=== PATIENT | female | born 2000 | race Caucasian/White ===

== ENCOUNTER 2021-06-01 17:24 | Emergency (ER) | payer OTHER ==
[~2021-06-01] VITALS: Ht 165.1 cm; Wt 69.4 kg
[2021-06-01 19:52] LABS: BASO % 0.2 % (0.0-1.0); EOS % 0.4 % (0.0-3.0); HEMATOCRIT 37.8 % (36.0-47.0); HEMOGLOBIN 13.1 g/dl (12.0-15.5); LYMPH # 2.3 10^3/uL (1.5-5.0); LYMPH % 22.5 % (24.0-44.0); MEAN CORPUSCULAR HEMOGLOBIN 29.8 pg (27.0-33.0); MEAN CORPUSCULAR HGB CONC 34.7 g/dl (32.0-36.5); MEAN CORPUSCULAR VOLUME 86.1 fl (80.0-96.0); MONO # 0.6 10^3/uL (0.0-0.8); MONO % 5.3 % (2.0-8.0); NEUTROPHILS # 7.4 10^3/uL (1.5-8.5); NEUTROPHILS % 71.4 % (36.0-66.0); PLATELET COUNT, AUTOMATED 326 10^3/uL (150-450); RED BLOOD COUNT 4.39 10^6/uL (4.00-5.40); WHITE BLOOD COUNT 10.3 10^3/uL (4.0-10.0)
[2021-06-01 20:36] LABS: BLOOD UREA NITROGEN 10 MG/DL (7-18); CALCIUM LEVEL 9.8 MG/DL (8.5-10.1); CARBON DIOXIDE LEVEL 23 MEQ/L (21-32); CHLORIDE LEVEL 105 MEQ/L (98-107); GLUCOSE, FASTING 84 MG/DL (70-100); HCG, SERUM QUANTITATIVE 50028 MIU/ML; POTASSIUM SERUM 3.9 MEQ/L (3.5-5.1); SODIUM LEVEL 137 MEQ/L (136-145)
--- NOTE | 2021-06-01 20:52 | REPVR ---
PROCEDURE INFORMATION: Exam: US First Trimester, Transabdominal Exam date and time: 06/01/2021 7:58 PM Age: 20 years old Clinical indication: Lmp or gestational age (in weeks): 6w 2d; Other: Vaginal bleeding; TECHNIQUE: Imaging protocol: Real-time transabdominal obstetrical ultrasound of the maternal pelvis and a first trimester , less than 14 weeks 0 days, with image documentation. COMPARISON: No relevant prior studies available. FINDINGS: Gestation: Gestational sac measures 24 mm . pole measures 6.5 mm corresponding to 6 weeks and 4 days gestation. Embryonic/ heart rate: Positive heart rate of 122 bpm. MATERNAL: Uterus: Uterus measures 8.3 x 4.3 x 5.3 cm. Cervix: Unremarkable. Right adnexa: Right ovary measures 3.7 x 2.3 x 2.7 cm. Complex structure in the right ovary measuring 1.6 x 1.5 x 1.3 cm. Left ovary not visualized. Left adnexa: See "Right adnexa" finding. Intraperitoneal space: No intraperitoneal free fluid. IMPRESSION: Single intrauterine gestation corresponding to 6 weeks and 4 days gestation. Positive heart rate of 122 bpm. Right ovarian complex cystic structure, likely corpus luteal cyst. Electronically signed by: Jaime Doss On 06/01/2021 20:51:43 PM
[2021-06-01 21:15] VITALS: BP 145/74
== END 2021-06-01 21:34 | disposition home or self-care (01) ==
LOC: M ED 17:24
DX: O20.0 Threatened abortion (principal); O26.891 Other specified pregnancy related conditions, first trimester; O34.81 Maternal care for other abnormalities of pelvic organs, first trimester; O20.8 Other hemorrhage in early pregnancy; Z3A.01 Less than 8 weeks gestation of pregnancy; Z87.59 Personal history of other complications of pregnancy, childbirth and the puerperium

== ENCOUNTER → 2021-07-28 | Outpatient (CLI) | payer OTHER ==
[2021-07-28 17:47] LABS: HEMATOCRIT 35.9 % (36.0-47.0); HEMOGLOBIN 12.3 g/dl (12.0-15.5); MEAN CORPUSCULAR HEMOGLOBIN 29.9 pg (27.0-33.0); MEAN CORPUSCULAR HGB CONC 34.3 g/dl (32.0-36.5); MEAN CORPUSCULAR VOLUME 87.1 fl (80.0-96.0); PLATELET COUNT, AUTOMATED 245 10^3/uL (150-450); RED BLOOD COUNT 4.12 10^6/uL (4.00-5.40); WHITE BLOOD COUNT 8.7 10^3/uL (4.0-10.0)
[2021-07-28 18:41] LABS: HEPATITIS C VIRUS ABY INDEX 0.1 INDEX (<0.8); HIV 1&2 SCREEN CENTAUR NEGATIVE (NEGATIVE)
[2021-07-28 21:54] LABS: GC DNA AMPLIFICATION NEGATIVE (NEGATIVE)
== END ==
LOC: M PLALAB 13:43
PROVIDERS: ATTEND Advanced Practice Midwife
DX: Z36.89 Encounter for other specified antenatal screening (principal); Z3A.14 14 weeks gestation of pregnancy

== ENCOUNTER → 2021-09-02 | Outpatient (CLI) | payer OTHER | LOC: M RAD 09:53 → M WHC 09:53 | PROVIDERS: ATTEND Advanced Practice Midwife | DX: O32.1XX0 Maternal care for breech presentation, not applicable or unspecified (principal); Z36.89 Encounter for other specified antenatal screening; Z3A.19 19 weeks gestation of pregnancy ==

== ENCOUNTER → 2021-10-28 | Outpatient (CLI) | payer OTHER ==
[2021-10-28 15:32] LABS: HEMATOCRIT 35.7 % (36.0-47.0); MEAN CORPUSCULAR HGB CONC 33.6 g/dl (32.0-36.5); MEAN CORPUSCULAR VOLUME 92.2 fl (80.0-96.0); PLATELET COUNT, AUTOMATED 197 10^3/uL (150-450); RED BLOOD COUNT 3.87 10^6/uL (4.00-5.40); WHITE BLOOD COUNT 12.5 10^3/uL (4.0-10.0)
== END ==
LOC: M PLALAB 11:26
PROVIDERS: ATTEND Advanced Practice Midwife
DX: Z34.82 Encounter for supervision of other normal pregnancy, second trimester (principal); Z3A.00 Weeks of gestation of pregnancy not specified

== ENCOUNTER → 2022-01-05 | Outpatient (REF) | payer OTHER ==
[~2022-01-05] MED LIST: ACET160S3 PO; PRENTAB9 PO; TUMS750C5 PO
== END ==
LOC: M SFHCWAGY 16:43
PROVIDERS: ATTEND Obstetrics & Gynecology
DX: O41.00X0 Oligohydramnios, unspecified trimester, not applicable or unspecified (principal)

== ENCOUNTER → 2022-04-12 | Outpatient (CLI) | payer OTHER | LOC: M PLALAB 12:38 | PROVIDERS: ATTEND Obstetrics & Gynecology | DX: Z34.91 Encounter for supervision of normal pregnancy, unspecified, first trimester (principal); Z3A.01 Less than 8 weeks gestation of pregnancy ==

== ENCOUNTER 2023-01-31 12:35 | Emergency (ER) | payer OTHER ==
[~2023-01-31] VITALS: Ht 165.1 cm; Wt 95.5 kg
[2023-01-31 15:07] LABS: BASO % 0.4 % (0.0-1.0); EOS # 0.1 10^3/uL (0.0-0.5); EOS % 1.3 % (0.0-3.0); HEMATOCRIT 43.3 % (36.0-47.0); HEMOGLOBIN 14.2 g/dl (12.0-15.5); MEAN CORPUSCULAR HEMOGLOBIN 28.5 pg (27.0-33.0); MEAN CORPUSCULAR HGB CONC 32.8 g/dl (32.0-36.5); MEAN CORPUSCULAR VOLUME 86.8 fl (80.0-96.0); MONO # 0.5 10^3/uL (0.0-0.8); MONO % 5.5 % (2.0-8.0); NEUTROPHILS # 5.7 10^3/uL (1.5-8.5); NEUTROPHILS % 60.6 % (36.0-66.0); PLATELET COUNT, AUTOMATED 325 10^3/uL (150-450); RED BLOOD COUNT 4.99 10^6/uL (4.00-5.40); WHITE BLOOD COUNT 9.5 10^3/uL (4.0-10.0)
[2023-01-31 15:33] LABS: BLOOD UREA NITROGEN 10 MG/DL (9-23); CALCIUM LEVEL 9.7 MG/DL (8.5-10.1); CARBON DIOXIDE LEVEL 24 MMOL/L (20-31); CHLORIDE LEVEL 107 MMOL/L (98-107); CREATININE FOR GFR 0.63 MG/DL (0.55-1.30); GLOMERULAR FILTRATION RATE > 60.0 (>60); GLUCOSE, FASTING 96 MG/DL (60-100); POTASSIUM SERUM 4.2 MMOL/L (3.5-5.1); SODIUM LEVEL 138 MMOL/L (136-145)
[2023-01-31 19:08] LABS: GC DNA AMPLIFICATION NEGATIVE (NEGATIVE)
[2023-01-31] MEDS ORDERED: IBUP-1022 PO (20:06)
[2023-01-31 20:26] VITALS: BP 148/88
== END 2023-01-31 20:28 | disposition home or self-care (01) ==
LOC: M ED 12:35
DX: N93.9 Abnormal uterine and vaginal bleeding, unspecified (principal); Z79.810 Long term (current) use of selective estrogen receptor modulators (SERMs); Z79.899 Other long term (current) drug therapy

== ENCOUNTER 2023-02-28 17:44 | Emergency (ER) | payer OTHER ==
[~2023-02-28] VITALS: Ht 165.1 cm; Wt 96.5 kg
[~2023-02-28 17:44] MED LIST changes: +IBUP-1022 PO
[2023-02-28 18:18] LABS: BASO # 0.1 10^3/uL (0.0-0.2); BASO % 0.5 % (0.0-1.0); EOS # 0.1 10^3/uL (0.0-0.5); EOS % 1.2 % (0.0-3.0); HEMATOCRIT 41.8 % (36.0-47.0); HEMOGLOBIN 14.3 g/dl (12.0-15.5); LYMPH # 3.9 10^3/uL (1.5-5.0); MEAN CORPUSCULAR HEMOGLOBIN 29.3 pg (27.0-33.0); MEAN CORPUSCULAR HGB CONC 34.2 g/dl (32.0-36.5); MEAN CORPUSCULAR VOLUME 85.7 fl (80.0-96.0); MONO # 0.4 10^3/uL (0.0-0.8); MONO % 3.8 % (2.0-8.0); NEUTROPHILS # 5.9 10^3/uL (1.5-8.5); NEUTROPHILS % 56.2 % (36.0-66.0); PLATELET COUNT, AUTOMATED 333 10^3/uL (150-450); RED BLOOD COUNT 4.88 10^6/uL (4.00-5.40); WHITE BLOOD COUNT 10.4 10^3/uL (4.0-10.0)
[2023-02-28 18:45] LABS: ETHYL ALCOHOL (ETHANOL) < 0.003 % (0.000-0.010)
[2023-02-28] MEDS ORDERED: NS 1,000 ML IV ONE (18:45)
[2023-02-28] MEDS ORDERED: ONDANSETRON 4MG 2ML VIAL IV ONE (18:45)
[2023-02-28 18:47] LABS: BLOOD UREA NITROGEN 12 MG/DL (9-23); CALCIUM LEVEL 9.1 MG/DL (8.5-10.1); CARBON DIOXIDE LEVEL 22 MMOL/L (20-31); CHLORIDE LEVEL 104 MMOL/L (98-107); CREATININE FOR GFR 0.74 MG/DL (0.55-1.30); GLOMERULAR FILTRATION RATE > 60.0 (>60); GLUCOSE, FASTING 158 MG/DL (60-100); MAGNESIUM LEVEL 1.5 MG/DL (1.8-2.4); POTASSIUM SERUM 3.4 MMOL/L (3.5-5.1); SODIUM LEVEL 137 MMOL/L (136-145)
[2023-02-28 18:49] LABS: FREE T4 1.08 NG/DL (0.89-1.76); THYROID STIMULATING HORMONE 3.072 uIU/ML (0.55-4.78)
[2023-02-28 18:56] LABS: HCG, SERUM QUALITATIVE NEGATIVE (NEGATIVE)
[2023-02-28] MEDS: MAG SULF 1GM/100ML (MAG RUN) 1 GM in IV 1 EA IV SCH ×2 (19:17→19:51)
[2023-02-28 19:30] VITALS: TEMP 97.9
[2023-02-28] MEDS ORDERED: NS 1,900 ML in IV 1 EA IV ONE (19:30)
[2023-02-28 19:47] LABS: AMPHETAMINES LEVEL URINE NEGATIVE (NEGATIVE); BARBITURATES URINE NEGATIVE (NEGATIVE); BENZODIAZEPINES URINE NEGATIVE (NEGATIVE); CANNABINOIDS URINE NEGATIVE (NEGATIVE); COCAINE METABOLITE URINE NEGATIVE (NEGATIVE); METHADONE URINE NEGATIVE (NEGATIVE); OPIATES URINE NEGATIVE (NEGATIVE); PHENCYCLIDINE URINE NEGATIVE (NEGATIVE)
[2023-02-28] MEDS ORDERED: POTASSIUM CHLORIDE 10MEQ SR TABLET PO ONE (20:10)
[2023-02-28 21:29] VITALS: BP 146/97
[2023-02-28 21:30] VITALS: O2SAT 98
[2023-03-01] MEDS ORDERED: HOLTER MONITOR XX (16:09)
[2023-03-01] MEDS ORDERED: HYDR-3363 PO (16:09)
== END 2023-02-28 21:50 | disposition left against medical advice (07) ==
LOC: M ED 17:44
DX: E87.6 Hypokalemia (principal); E83.42 Hypomagnesemia; R94.31 Abnormal electrocardiogram [ECG] [EKG]; Z53.9 Procedure and treatment not carried out, unspecified reason; F84.5 Asperger's syndrome; F41.9 Anxiety disorder, unspecified
CPT/HCPCS: 71045; 80048; 80307; 82077; 83735; 84439; 84443; 84703; 85025; 87507; 93005; 93041; 94760; 96361; 96365; 96375; 99285; J2405; J3475

== ENCOUNTER 2023-03-01 11:05 | Emergency (ER) | payer OTHER ==
[~2023-03-01] VITALS: Ht 165.1 cm; Wt 96.5 kg
[2023-03-01 12:29] LABS: BASO % 0.3 % (0.0-1.0); EOS % 0.3 % (0.0-3.0); HEMATOCRIT 39.6 % (36.0-47.0); HEMOGLOBIN 13.3 g/dl (12.0-15.5); LYMPH # 2.1 10^3/uL (1.5-5.0); LYMPH % 20.5 % (24.0-44.0); MEAN CORPUSCULAR HGB CONC 33.6 g/dl (32.0-36.5); MEAN CORPUSCULAR VOLUME 86.3 fl (80.0-96.0); MONO # 0.4 10^3/uL (0.0-0.8); MONO % 3.7 % (2.0-8.0); NEUTROPHILS # 7.8 10^3/uL (1.5-8.5); NEUTROPHILS % 74.8 % (36.0-66.0); PLATELET COUNT, AUTOMATED 322 10^3/uL (150-450); RED BLOOD COUNT 4.59 10^6/uL (4.00-5.40); WHITE BLOOD COUNT 10.4 10^3/uL (4.0-10.0)
[2023-03-01 12:45] VITALS: TEMP 98.7
[2023-03-01 13:11] LABS: BLOOD UREA NITROGEN 10 MG/DL (9-23); CALCIUM LEVEL 9.7 MG/DL (8.5-10.1); CARBON DIOXIDE LEVEL 21 MMOL/L (20-31); CHLORIDE LEVEL 109 MMOL/L (98-107); CREATININE FOR GFR 0.66 MG/DL (0.55-1.30); GLOMERULAR FILTRATION RATE > 60.0 (>60); GLUCOSE, FASTING 96 MG/DL (60-100); MAGNESIUM LEVEL 2.1 MG/DL (1.8-2.4); POTASSIUM SERUM 4.3 MMOL/L (3.5-5.1); SODIUM LEVEL 139 MMOL/L (136-145)
[2023-03-01] MEDS ORDERED: HOLTER MONITOR XX (16:09)
[2023-03-01] MEDS ORDERED: HYDR-3363 PO (16:09)
[2023-03-01 16:43] VITALS: BP 140/89; O2SAT 100
== END 2023-03-01 16:51 | disposition home or self-care (01) ==
LOC: M ED 11:05
DX: R00.0 Tachycardia, unspecified (principal)

== ENCOUNTER 2023-03-03 16:59 | Observation (INO) | payer OTHER ==
[~2023-03-03] VITALS: Ht 165.1 cm; Wt 92.7 kg
[~2023-03-03 16:59] MED LIST changes: +HOLTER MONITOR XX; +HYDR-3363 PO
[2023-03-03] MEDS ORDERED: NS 1,000 ML IV ONE (18:10)
[2023-03-03 18:50] LABS: VENOUS BASE EXCESS -2.3 (-2.0-2.0); VENOUS HCO3 21.6 MMOL/L (23.0-27.0); VENOUS O2 SATURATION 78.9 % (60.0-80.0); VENOUS PARTIAL PRESSURE CO2 34.9 mmHg (38.0-50.0); VENOUS PARTIAL PRESSURE O2 41.1 mmHg (30.0-50.0); VENOUS STANDARD HCO3 22.1 MMOL/L; VENOUS TOTAL CO2 22.7 MMOL/L (24.0-28.0)
[2023-03-03 18:56] LABS: BASO % 0.4 % (0.0-1.0); EOS % 0.3 % (0.0-3.0); HEMOGLOBIN 14.1 g/dl (12.0-15.5); LYMPH # 2.7 10^3/uL (1.5-5.0); LYMPH % 26.7 % (24.0-44.0); MEAN CORPUSCULAR HEMOGLOBIN 29.4 pg (27.0-33.0); MEAN CORPUSCULAR HGB CONC 34.4 g/dl (32.0-36.5); MEAN CORPUSCULAR VOLUME 85.4 fl (80.0-96.0); MONO # 0.5 10^3/uL (0.0-0.8); MONO % 4.9 % (2.0-8.0); NEUTROPHILS # 6.8 10^3/uL (1.5-8.5); NEUTROPHILS % 67.4 % (36.0-66.0); PLATELET COUNT, AUTOMATED 335 10^3/uL (150-450); WHITE BLOOD COUNT 10.1 10^3/uL (4.0-10.0)
[2023-03-03 19:29] LABS: THYROID STIMULATING HORMONE 1.499 uIU/ML (0.55-4.78)
[2023-03-03 19:36] LABS: C REACTIVE PROTEIN QUANTITATIV < 0.40 MG/DL (<1.0)
[2023-03-03 19:39] LABS: ALBUMIN 4.1 G/DL (3.2-5.2); ALKALINE PHOSPHATASE 63 U/L (46-116); ALT/SGPT 57 U/L (7.0-40); AST/SGOT 83 U/L (<34); BILIRUBIN,DIRECT < 0.1 MG/DL (<0.4); BILIRUBIN,TOTAL 0.5 MG/DL (0.3-1.2); BLOOD UREA NITROGEN 10 MG/DL (9-23); CALCIUM LEVEL 8.9 MG/DL (8.5-10.1); CARBON DIOXIDE LEVEL 21 MMOL/L (20-31); CHLORIDE LEVEL 106 MMOL/L (98-107); CK-MB VALUE MASS < 1.0 NG/ML (<3.6); CPK CREATINE PHOSPHOKINASE 89 U/L (34-145); CREATININE FOR GFR 0.77 MG/DL (0.55-1.30); FREE T4 1.29 NG/DL (0.89-1.76); GLOMERULAR FILTRATION RATE > 60.0 (>60); GLUCOSE, FASTING 96 MG/DL (60-100); MAGNESIUM LEVEL 2.2 MG/DL (1.8-2.4); MB/CK RELATIVE INDEX 1.12 (< OR =4); PHOSPHORUS LEVEL 3.4 MG/DL (2.5-4.9); POTASSIUM SERUM 5.6 MMOL/L (3.5-5.1); SODIUM LEVEL 140 MMOL/L (136-145); TOTAL PROTEIN 7.6 G/DL (5.7-8.2)
[2023-03-03 20:21] LABS: HCG, SERUM QUALITATIVE NEGATIVE (NEGATIVE)
[2023-03-03 20:32] LABS: ERYTHROCYTE SEDIMENTATION RATE 21 mm/hr (0-20)
[2023-03-03] MEDS ORDERED: HYDR-3363 PO (21:44)
[2023-03-03] MEDS ORDERED: MED REC IN PROGRESS XX SCH (21:45)
[2023-03-03] MEDS ORDERED: HOME MED LIST COMPLETE! XX SCH (21:50)
[2023-03-03 23:07] VITALS: O2SAT 98
[2023-03-03 23:52] LABS: CK-MB VALUE MASS < 1.0 NG/ML (<3.6)
[2023-03-03 23:53] LABS: BLOOD UREA NITROGEN 9 MG/DL (9-23); CALCIUM LEVEL 8.7 MG/DL (8.5-10.1); CARBON DIOXIDE LEVEL 21 MMOL/L (20-31); CHLORIDE LEVEL 110 MMOL/L (98-107); CPK CREATINE PHOSPHOKINASE 54 U/L (34-145); CREATININE FOR GFR 0.71 MG/DL (0.55-1.30); GLOMERULAR FILTRATION RATE > 60.0 (>60); GLUCOSE, FASTING 97 MG/DL (60-100); MB/CK RELATIVE INDEX 1.85 (< OR =4); POTASSIUM SERUM 4.1 MMOL/L (3.5-5.1); SODIUM LEVEL 142 MMOL/L (136-145)
[2023-03-04 00:03] LABS: RSV AMPLIFICATION NEGATIVE (NEGATIVE)
[2023-03-04 03:01] LABS: CORTISOL PM 10.1 UG/DL (3.1-16.7)
[2023-03-04 07:11] LABS: HEMATOCRIT 40.1 % (36.0-47.0); HEMOGLOBIN 13.6 g/dl (12.0-15.5); MEAN CORPUSCULAR HEMOGLOBIN 29.1 pg (27.0-33.0); MEAN CORPUSCULAR HGB CONC 33.9 g/dl (32.0-36.5); MEAN CORPUSCULAR VOLUME 85.7 fl (80.0-96.0); PLATELET COUNT, AUTOMATED 323 10^3/uL (150-450); RED BLOOD COUNT 4.68 10^6/uL (4.00-5.40)
[2023-03-04 07:41] LABS: ALBUMIN 4.1 G/DL (3.2-5.2); ALKALINE PHOSPHATASE 70 U/L (46-116); ALT/SGPT 45 U/L (7.0-40); AST/SGOT 24 U/L (<34); BILIRUBIN,TOTAL 0.7 MG/DL (0.3-1.2); BLOOD UREA NITROGEN 9 MG/DL (9-23); CALCIUM LEVEL 9.5 MG/DL (8.5-10.1); CARBON DIOXIDE LEVEL 23 MMOL/L (20-31); CHLORIDE LEVEL 107 MMOL/L (98-107); CHOLESTEROL LEVEL 191 MG/DL (<200); CHOLESTEROL RISK RATIO 5.75 (<5); CORTISOL AM 19.7 UG/DL (4.3-22.4); CREATININE FOR GFR 0.74 MG/DL (0.55-1.30); GLOMERULAR FILTRATION RATE > 60.0 (>60); GLUCOSE, FASTING 89 MG/DL (60-100); HDL CHOLESTEROL 33.2 MG/DL (>40); LDL CHOLESTEROL 113.8 MG/DL (<100); NON-HDL-C 157.8 MG/DL; POTASSIUM SERUM 3.9 MMOL/L (3.5-5.1); SODIUM LEVEL 139 MMOL/L (136-145); TOTAL PROTEIN 7.2 G/DL (5.7-8.2); TRIGLYCERIDES LEVEL 220 MG/DL (<150)
[2023-03-04 08:57] VITALS: BP_SYST 144; BP_SYST 146; BP_DIAS 91; BP_DIAS 93; TEMP 97.8; O2SAT 99
[2023-03-04] MEDS: ENOXAPARIN 40MG/0.4ML SYRINGE (J1650 PER 10MG) SC SCH (09:00)
[2023-03-04 12:31] VITALS: BP 128/83; TEMP 96.9; O2SAT 100
[2023-03-04 12:32] VITALS: BP 130/90
[2023-03-04 15:51] VITALS: BP 138/85; TEMP 97.4; O2SAT 100
[2023-03-04] MEDS: FLUoxetine 10 MG CAP PO SCH (18:34)
[2023-03-04 19:51] VITALS: BP 130/87; TEMP 97.6; O2SAT 99
[2023-03-04] MEDS: ACETAMINOPHEN TAB 650MG DOSE (2X325MG) PO PRN ×2 (22:25→22:39)
[2023-03-05 03:49] VITALS: BP 133/97; TEMP 97; O2SAT 98
[2023-03-05 08:22] VITALS: BP 139/88; TEMP 96.6; O2SAT 100
[2023-03-05 08:27] VITALS: BP 132/84
[2023-03-05] MEDS: FLUoxetine 10 MG CAP PO SCH ×2 (08:31→09:46)
[2023-03-05] MEDS: ENOXAPARIN 40MG/0.4ML SYRINGE (J1650 PER 10MG) SC SCH (08:32)
[2023-03-05] MEDS ORDERED: FLUO10CA18 PO (10:08)
[2023-03-09 00:07] LABS: METANEPHRINE PLASMA 14.8 pg/mL (0.0-88.0); NORMETANEPHRINE PLASMA 38.6 pg/mL (0.0-210.1)
== END 2023-03-05 12:45 | disposition home or self-care (01) ==
LOC: M ED 16:59 → M ED INP 17:00 → ENRESERV 03-04 07:44 → M PCU 03-04 08:57
PROVIDERS: ADMIT Internal Medicine; ATTEND Internal Medicine
DX: R03.0 Elevated blood-pressure reading, without diagnosis of hypertension (principal); R00.2 Palpitations; R00.0 Tachycardia, unspecified; F41.0 Panic disorder [episodic paroxysmal anxiety]; F32.A Depression, unspecified; R74.01 Elevation of levels of liver transaminase levels; E66.01 Morbid (severe) obesity due to excess calories; Z79.899 Other long term (current) drug therapy

== ENCOUNTER 2023-03-07 21:22 | Emergency (ER) | payer OTHER ==
[~2023-03-07] VITALS: Ht 165.1 cm; Wt 92.1 kg
[~2023-03-07 21:22] MED LIST changes: +FLUO10CA18 PO
[2023-03-08 01:58] VITALS: BP 168/95; TEMP 97; O2SAT 99
== END 2023-03-08 04:25 | disposition left against medical advice (07) ==
LOC: M ED 21:22
DX: Z53.21 Procedure and treatment not carried out due to patient leaving prior to being seen by health care provider (principal)